=== PATIENT | female | born 1950 | race Caucasian/White ===

== ENCOUNTER 2019-06-14 16:46 | Emergency (ER) | payer MEDICARE ==
[2019-06-14] MEDS ORDERED: 0.9 % SODIUM CHLORIDE 1000ML 1,000 ML IV ONE (17:22)
[2019-06-14] MEDS ORDERED: ONDANSETRON HCL IV 4 MG/2 ML VIAL IVP ONE (17:22)
[2019-06-14] MEDS ORDERED: ACETAMINOPHEN 1,000 MG/100 ML BTL IVPB ONE (17:22)
--- NOTE | 2019-06-14 17:27 | Emergency Department Record ---
History of Present Illness - General Stated Complaint: PAIN,LOWER ABDOMIN/LT SIDE Time Seen by Provider: 06/14/19 17:18 Source: Patient Mode of Arrival: Ambulatory Limitations: No limitations - History of Present Illness Initial Comments: 68 yo female presents abdominal pain that started 2-3 hours ago. The pain starts in the lower abdomen mostly on the left. The pain does seem to radiate up the left and to the left flank. She has associated nausea. No vomiting. She did have a couple loose stools this morning. No blood in the stools or in her urine. No history of similar pain in the past. She has had a hysterectomy and oopherectomy. She had a "normal" colonoscopy about 10 years ago. MD Complaint: Abdominal pain -: Hour(s) (2-3) Location: LLQ Radiation: LUQ Migration to: LLQ Severity: Moderate Quality: Aching, Sharp, Stabbing Consistency: Intermittent Improves With: Nothing Worsens With: Nothing Associated Symptoms: Anorexia, Diarrhea - Related Data Previous Rx's Medication Instructions Recorded Hyoscyamine Sulfate [Levsin-Sl] 0.125 mg SL Q8H PRN #15 tab.subl 06/14/19 Allergies Allergy/AdvReac Type Severity Reaction Status Date / Time No Known Drug Allergies Allergy Verified 06/14/19 17:27 Review of Systems Constitutional: Denies: Chills, Fever, Malaise, Weakness Eyes: Denies: Eye discharge ENT: Denies: Congestion, Throat pain Respiratory: Denies: Cough, Dyspnea, Hemoptysis, Stridor, Wheezes Cardiovascular: Denies: Chest pain, Dyspnea on exertion, Edema, Palpitations, Syncope Endocrine: Denies: Fatigue, Polydipsia, Polyuria Gastrointestinal: Reports: Abdominal pain, Diarrhea (few episodes this morning), Nausea. Denies: Constipation, Hematemesis, Hematochezia, Melena Genitourinary: Denies: Dysuria, Urgency Musculoskeletal: Denies: Arthralgia, Back pain, Neck pain Skin: Denies: Bruising, Change in color, Rash Neurological: Denies: Headache, Weakness Psychiatric: Denies: Anxiety Hematological/Lymphatic: Denies: Easy bleeding, Easy bruising Physical Exam - General General Appearance: Alert, Oriented x3, Cooperative, No acute distress Limitations: No limitations - Head Head exam: Atraumatic, Normal inspection - Eye Eye exam: Normal appearance, PERRL. negative: Conjunctival injection, Scleral icterus - ENT ENT exam: Normal exam, Mucous membranes moist Ear exam: Normal external inspection Nasal Exam: Normal inspection Mouth exam: Normal external inspection Teeth exam: Normal inspection Throat exam: Normal inspection - Neck Neck exam: Normal inspection - Respiratory Respiratory exam: Normal lung sounds bilaterally. negative: Respiratory distress - Cardiovascular Cardiovascular Exam: Regular rate, Normal rhythm, Normal heart sounds - GI/Abdominal GI/Abdominal exam: Soft, Tenderness (very soft abdomen, tender left lower quadrant, remainder is soft). negative: Distended, Guarding, Rebound, Rigid - Rectal Rectal exam: Deferred - exam: Deferred - Extremities Extremities exam: Normal inspection. negative: Tenderness - Back Back exam: Denies: CVA tenderness (R), CVA tenderness (L), Tenderness - Neurological Neurological exam: Alert, Oriented X3 - Psychiatric Psychiatric exam: Normal affect, Normal mood. negative: Agitated, Anxious - Skin Skin exam: Dry, Intact, Normal color, Warm Course - Reevaluation(s) Reevaluation #1: 06/14/19 18:25 The labs were reviewed No acute abnormality. The pain is not resolved at this time 06/14/19 19:01 The labs were reviewed with the patient The patient was signed out at shift turn over with Dr Proctor Medical Decision Making - Lab Data Result diagrams: 06/14/19 17:30 06/14/19 17:30 Disposition Disposition: Discharge Clinical Impression: Abdominal pain Qualifiers: Abdominal location: left lower quadrant Qualified Code(s): R10.32 - Left lower quadrant pain Disposition: Home, Self-Care Condition: (2) Stable Instructions: Abdominal Pain (ED) Additional Instructions: Return to ED if your symptoms worsen or if you have any concerns. Drink plenty of fluids, rest. Levsin as needed. Follow-up with your family doctor in 3-5 days as directed. Prescriptions: Hyoscyamine Sulfate [Levsin-Sl] 0.125 mg SL Q8H PRN #15 tab.subl PRN Reason: Abdominal Pain Forms: Patient Portal Access Time of Disposition: 20:25 Quality - Quality Measures Quality Measures: N/A - Blood Pressure Screening Does Patient Have Any of the Following: No Blood Pressure Classification: Pre-Hypertensive BP Reading Systolic Measurement: 126 Diastolic Measurement: 71 Screening for High Blood Pressure: < Pre-Hypertensive BP, F/U Documented > [G8950] Pre-Hypertensive Follow-up Interventions: Referral to alternative/primary care provider.
[2019-06-14 17:35] LABS: ABSOLUTE NEUTROPHIL COUNT 3.76; BASO % 0.9 % (0-6); EOS % 3.5 % (0-6); HEMATOCRIT 41.5 % (35.0-47.0); HEMOGLOBIN 13.3 gm/dl (11.6-16.0); LYMPH % 23.7 % (16-45); MEAN CELL VOLUME 86.8 fl (81-97); MEAN CORPUSCULAR HEMOGLOBIN 27.8 pg (27-33); MEAN PLATELET VOLUME 11.2 fl (7.4-10.4); MONO % 6.9 % (0-9); PLATELET COUNT 209 K/uL (130-400); RED BLOOD COUNT 4.78 M/uL (3.80-5.40); RED CELL DISTRIBUTION WIDTH 13.5 % (11.5-14.5); WHITE BLOOD COUNT W/O DIFF 5.8 K/uL (4.2-12.2)
[2019-06-14 17:46] LABS: BLOOD UREA NITROGEN 16 mg/dL (8-23); CREATININE 0.5 mg/dL (0.5-0.9); EST GLOMERULAR FILTRATION RATE > 60 mL/min
[2019-06-14 17:47] LABS: LIPASE 22 U/L (13-60); TOTAL PROTEIN 7.1 g/dL (6.6-8.7)
[2019-06-14 17:49] LABS: GLUCOSE,RANDOM 121 mg/dL (74-109)
[2019-06-14 17:51] LABS: ALT/SGPT 27 U/L (<33); AST/SGOT 31 U/L (10.0-35.0)
[2019-06-14 17:52] LABS: ALB/GLOB RATIO 1.7 (1.1-1.8); ALBUMIN 4.5 g/dL (4.0-5.0); ALKALINE PHOSPHATASE 58 U/L (35-104)
[2019-06-14] MEDS ORDERED: MORPHINE SULFATE 5 MG/ML VIAL IVP ONE (18:26)
--- NOTE | 2019-06-14 19:27 | Emergency Department Record ---
History of Present Illness - General Chief Complaint: Abdominal Pain Stated Complaint: PAIN,LOWER ABDOMIN/LT SIDE Time Seen by Provider: 06/14/19 17:18 Source: Patient Mode of Arrival: Ambulatory Limitations: No limitations - History of Present Illness MD Complaint: Abdominal pain Onset/Timin -: Hour(s) (2-3) Location: LLQ Radiation: LUQ Migration to: LLQ Severity: Moderate Severity scale (1-10): 5 Quality: Aching, Sharp, Stabbing Consistency: Intermittent Improves With: Nothing Worsens With: Nothing Associated Symptoms: Anorexia, Diarrhea - Related Data Previous Rx's Medication Instructions Recorded Hyoscyamine Sulfate [Levsin-Sl] 0.125 mg SL Q8H PRN #15 tab.subl 06/14/19 Allergies Allergy/AdvReac Type Severity Reaction Status Date / Time No Known Drug Allergies Allergy Verified 06/14/19 17:27 Travel Screening - Travel/Exposure Within Last 30 Days Have you traveled within the last 30 days?: No - Travel/Exposure Within Last Year Have you traveled outside the [place] in the last year?: No - Additonal Travel Details Have you been exposed to anyone with a communicable illness?: No - Travel Symptoms Symptom Screening: None Past Medical History - SOCIAL HISTORY Smoking Status: Never smoker Alcohol Use: None Drug Use: None - RESPIRATORY Hx Respiratory Disorders: No - CARDIOVASCULAR Hx Cardio Disorders: No - NEURO Hx Neuro Disorders: No - GI Hx GI Disorders: No - Hx Genitourinary Disorders: No - ENDOCRINE Hx Endocrine Disorders: No - MUSCULOSKELETAL Hx Musculoskeletal Disorders: No - PSYCH Hx Psych Problems: No - HEMATOLOGY/ONCOLOGY Hx Hematology/Oncology Disorders: No Family Medical History Any Significant Family History?: No Physical Exam - General Limitations: No limitations Course Vital Signs 06/14/19 06/14/19 17:28 19:18 Temperature 97.8 F Pulse Rate 80 Pulse Rate [ 79 Pulse Ox Probe] Respiratory 20 18 Rate Blood Pressure 126/71 Blood Pressure 128/76 [Left Arm] Pulse Ox 99 99 - Reevaluation(s) Reevaluation #1: 06/14/19 19:26 Patient is back from CT imaging Laboratory studies were reviewed and appear grossly unremarkable for an acute process. Reevaluation #2: 06/14/19 19:48 CT Abdomen and Pelvis: No acute process Urinalysis appears negative for an acute process. 06/14/19 19:51 Patient was updated on all results, repeat abdominal examination demonstrates no further pain on examination. Patient reports that she is feeling much improved, and appears stable for discharge at this time. Medical Decision Making - Lab Data Result diagrams: 06/14/19 17:30 06/14/19 17:30 Lab Results 06/14/19 06/14/19 Range/Units 17:30 17:30 WBC 5.8 (4.2-12.2) K/uL RBC 4.78 (3.80-5.40) M/uL Hgb 13.3 (11.6-16.0) gm/dl Hct 41.5 (35.0-47.0) % MCV 86.8 (81-97) fl MCH 27.8 (27-33) pg MCHC 32.0 (32-36) g/dl RDW 13.5 (11.5-14.5) % Plt Count 209 (130-400) K/uL MPV 11.2 H (7.4-10.4) fl Gran % 65.0 (47-80) % Lymphocytes % 23.7 (16-45) % Monocytes % 6.9 (0-9) % Eosinophils % 3.5 (0-6) % Basophils % 0.9 (0-6) % Absolute Neutrophils 3.76 Sodium 140 (136-145) mmol/L Potassium 3.8 (3.4-4.5) mmol/L Chloride 101 (98-107) mmol/L Carbon Dioxide 26.0 (22-29) mmol/L Anion Gap 13.0 (7-16) BUN 16 (8-23) mg/dL Creatinine 0.5 (0.5-0.9) mg/dL Estimated GFR > 60 mL/min Random Glucose 121 H (74-109) mg/dL Calcium 9.4 (8.8-10.2) mg/dL Total Bilirubin 0.30 (0.2-1.0) mg/dL AST 31 (10.0-35.0) U/L ALT 27 (<33) U/L Alkaline Phosphatase 58 (35-104) U/L Total Protein 7.1 (6.6-8.7) g/dL Albumin 4.5 (4.0-5.0) g/dL Globulin 2.6 (1.4-4.8) gm/dL Albumin/Globulin Ratio 1.7 (1.1-1.8) Lipase 22 (13-60) U/L Disposition Disposition: Discharge Clinical Impression: Abdominal pain Qualifiers: Abdominal location: left lower quadrant Qualified Code(s): R10.32 - Left lower quadrant pain Disposition: Home, Self-Care Condition: (2) Stable Instructions: Abdominal Pain (ED) Additional Instructions: Return to ED if your symptoms worsen or if you have any concerns. Drink plenty of fluids, rest. Levsin as needed. Follow-up with your family doctor in 3-5 days as directed. Prescriptions: Hyoscyamine Sulfate [Levsin-Sl] 0.125 mg SL Q8H PRN #15 tab.subl PRN Reason: Abdominal Pain Forms: Patient Portal Access Time of Disposition: 19:53 Quality - Quality Measures Quality Measures: N/A - Blood Pressure Screening Does Patient Have Any of the Following: No Blood Pressure Classification: Pre-Hypertensive BP Reading Systolic Measurement: 126 Diastolic Measurement: 71 Screening for High Blood Pressure: < Pre-Hypertensive BP, F/U Documented > [G8950] Pre-Hypertensive Follow-up Interventions: Referral to alternative/primary care provider.
[2019-06-14 19:42] LABS: URINE APPEARANCE CLEAR; URINE BILIRUBIN NEGATIVE (NEGATIVE); URINE BLOOD TRACE-I (NEGATIVE); URINE COLOR YELLOW; URINE GLUCOSE (UA) NEGATIVE (NEGATIVE); URINE KETONE 15 mg/dL (NEGATIVE); URINE LEUKOCYTE ESTERASE NEGATIVE (NEGATIVE); URINE NITRITE NEGATIVE (NEGATIVE); URINE PROTEIN NEGATIVE (NEGATIVE); URINE UROBILINOGEN 0.2 E.U./dL (0.20 - 1.00)
--- NOTE | 2019-06-14 19:44 | CT SCAN REPORT ---
EXAMINATION: CT Abdomen and Pelvis with Contrast EXAM DATE: 06/14/2019 7:07 PM TECHNIQUE: Spiral CT images were obtained from the lung bases to the ischial tuberosities after inje ction of intravenous contrast. Coronal and sagittal 2-D reconstructions were made from source images . IV Contrast: The type and amount of contrast are recorded in the medical record. INDICATION: left LL to L upper abdominal pain one half day COMPARISON: None. FINDINGS: Abdomen: Probable hepatic and renal cysts. The spleen, pancreas, and adrenals are unremarkable. No free fluid or free air. Suboptimal evaluation of bowel due to nondistention and lack of oral contrast. No bowel dilation. Pelvis: Previous hysterectomy. No free fluid or free air. No inflammatory change. No bowel dilation. IMPRESSION: 1. No acute abnormality. Dictated by: Anthony Baig MD on 06/14/2019 7:29 PM. .
[2019-06-14 19:49] LABS: URINE EPITHELIAL CELLS 0 - 2 (FEW); URINE RBC 0 - 2 (NONE SEEN); URINE WBC NONE SEEN (0-2/hpf)
[2019-06-14] MEDS ORDERED: HYOSCYAMINE SULFATE ODT 0.125 MG TAB.SUBL SL ONE (19:53)
== END 2019-06-14 20:16 | disposition home or self-care (01) ==
LOC: ER 16:46
DX: R10.32 Left lower quadrant pain (principal); R19.7 Diarrhea, unspecified; R11.0 Nausea
CPT/HCPCS: 74177; 80053; 81001; 83690; 85025; 96361; 96365; 96375; 99284; J2405; J7030